=== PATIENT | male | born 1985 | race Caucasian/White ===

== ENCOUNTER → 2021-05-11 13:57 | Outpatient (CLI) | payer OTHER, SELFPAY ==
--- NOTE | 2021-05-11 14:08 | XR_ITS ---
PROCEDURE: XR SHOULDER RT MIN 2V CLINICAL INDICATION: RT shoulder COMPARISON: No exams were available for comparison FINDINGS: IMPRESSION: No acute findings. Dictated by: Dr. Loco Lock MD 05/11/2021 14:29 Dr. Loco Lock MD in [facility] 05/11/2021 14:29
== END ==
PROVIDERS: PCP Internal Medicine; Visit Provider Orthopaedic Surgery
DX: M25.511 Pain in right shoulder (principal)
CPT/HCPCS: 73030

== ENCOUNTER → 2021-05-15 10:53 | Outpatient (CLI) | payer OTHER, SELFPAY ==
--- NOTE | 2021-05-15 10:56 | MR_ITS ---
PROCEDURE INFORMATION: Exam: MR Right Upper Extremity Joint Without Contrast; Shoulder Exam date and time: 05/15/2021 10:56 AM Age: 35 years old Clinical indication: Pain; Shoulder; Right; Prior surgery; Surgery date: 6+ months; Additional info: RT shoulder injury. Prior HX shoulder surgery x10yrs. Repair of labrum and rotator cuff. No injury or trauma. Dislocated shoulder x2wks ago. Prior x-ray 05-11-21 TECHNIQUE: Imaging protocol: MR of the Right upper extremity without contrast. Exam focused on the shoulder. COMPARISON: CR XR SHOULDER RT MIN 2V 05/11/2021 2:09 PM FINDINGS: Limitations: Motion artifact. Bones and cartilage: An impaction fracture involving the posterolateral humeral head is consistent with a Hill-Sachs lesion from prior anterior shoulder dislocation. A mildly flattened appearance of the anterior inferior glenoid may represent an area of prior low-grade impaction fracture (series 7/images 3-4). The undersurface of the acromion has a normal curvature, consistent with a type II acromion. No aggressive bone lesions are present. Joint spaces: A mild effusion involves the glenohumeral joint. No significant degenerative change involves the acromioclavicular joint. Glenoid labrum: There are tracks in the labrum consistent with prior labral repair. A heterogeneous appearance to the labrum has a nonspecific appearance in the setting of prior surgery. However, significant heterogeneity of the anterior inferior glenoid labrum, which may be displaced, is highly suggestive of a retear in the setting of a prior shoulder dislocation. Bursae: A trace amount of fluid is present in the subacromial-subdeltoid bursa. Supraspinatus tendon: Low-grade partial-thickness tearing involves the bursal surface of the supraspinatus tendon. Mild tendinosis involves the adjacent supraspinatus tendon. Infraspinatus tendon: No tear or significant tendinosis involves the infraspinatus tendon. Subscapularis tendon: No tear or significant tendinosis involves the subscapularis tendon. Teres minor tendon: No tear or significant tendinosis involves the teres minor tendon. Tendon of biceps brachii: The long head of the biceps tendon is normally situated within the bicipital groove. Glenohumeral ligaments: Unremarkable. Muscles: The rotator cuff musculature demonstrates no significant edema or atrophy. Soft tissues: There are normal postoperative punctate foci of micrometallic artifact in the soft tissues. IMPRESSION: 1. Hill-Sachs impaction fracture involving the posterolateral humeral head. 2. Probable retear of the anterior inferior glenoid labrum with additional labral heterogeneity being indeterminate in the setting of prior repair. 3. Low-grade partial-thickness tearing of the supraspinatus tendon bursal surface, superimposed on mild tendinosis. 4. Possible low-grade impaction fracture of the anterior inferior glenoid.
== END ==
PROVIDERS: PCP Internal Medicine; Visit Provider Orthopaedic Surgery
DX: M24.411 Recurrent dislocation, right shoulder (principal)
CPT/HCPCS: 73221

== ENCOUNTER 2021-12-28 17:50 | Emergency (ER) | payer BC, SELFPAY ==
--- NOTE | 2021-12-28 17:50 | PC.NURSE ---
FAMILY BROUGHT PT TO ED BY CAR UNRESPONSIVE, APNEIC, PULSLESS, STATES HE HAD SEIZURE TYPE ACTIVITY AND STOPPED BREATHING . CPR STARTED PT TRANSFERRED FROM WHEELCHAIR TO STRETCHER. PT BAGGED PER BVM.
--- NOTE | 2021-12-28 17:53 | PC.NURSE ---
EPI 1MG GIVEN
--- NOTE | 2021-12-28 17:54 | PC.NURSE ---
PULSE CHECK, VFIB 200j CPR RESUMED
--- NOTE | 2021-12-28 17:56 | PC.NURSE ---
PULSE CHECK VFIB SHOCK 200J, CPR RESUMED
--- NOTE | 2021-12-28 17:56 | PC.NURSE ---
MAG 2GMS IVP GIVEN
--- NOTE | 2021-12-28 17:57 | PC.NURSE ---
CALCIUM 1GM IVP
--- NOTE | 2021-12-28 17:58 | PC.NURSE ---
EPI 1MG IVP
--- NOTE | 2021-12-28 17:58 | PC.NURSE ---
PULSE CHECK, PEA, NO PULSE, CPR RESUMED
--- NOTE | 2021-12-28 17:58 | PC.NURSE ---
I AMP BICARB IVP
--- NOTE | 2021-12-28 18:00 | PC.NURSE ---
PULSE CHECK, PEA, NO PULSE, CPR RESUMED
--- NOTE | 2021-12-28 18:02 | PC.NURSE ---
EPI 1MG IVP
--- NOTE | 2021-12-28 18:04 | PC.NURSE ---
PULSE CHECK, PEA, NO PULSE CPR RESUMED
[2021-12-28 18:06] VITALS: BMI 22.9
--- NOTE | 2021-12-28 18:06 | PC.NURSE ---
EPI 1MG IVP
--- NOTE | 2021-12-28 18:06 | PC.NURSE ---
EPI 1MG IVP
--- NOTE | 2021-12-28 18:08 | PC.NURSE ---
PULSE CHECK, PEA , NO PULSE CPR RESUMED
--- NOTE | 2021-12-28 18:09 | PC.NURSE ---
PT INTUBATED 7.5 ETT AT 24 TEETH, +COLOR CHANGE, +BREATH CHANGE
--- NOTE | 2021-12-28 18:09 | INFXCTL.NOTE ---
END TITLE 11
--- NOTE | 2021-12-28 18:10 | PC.NURSE ---
PULSE CHECK, ASYSTOLE, NO PULSE CPR RESUMED
--- NOTE | 2021-12-28 18:10 | PC.NURSE ---
EPI 1MG IVP
--- NOTE | 2021-12-28 18:12 | PC.NURSE ---
pulse check, asystole
--- NOTE | 2021-12-28 18:14 | PC.NURSE ---
pulse check, no pulse, asystole
--- NOTE | 2021-12-28 18:16 | PC.NURSE ---
pulse check, PEA, no pulse
--- NOTE | 2021-12-28 18:18 | PC.NURSE ---
pulse check, PEA, no pulse
--- NOTE | 2021-12-28 18:20 | PC.NURSE ---
second line started 20 right ac
--- NOTE | 2021-12-28 18:20 | PC.NURSE ---
no pulse, US no cardiac activity
[2021-12-28 18:22] LABS: Anion Gap 13.1 mEq/L (5-15); Blood Urea Nitrogen 11 mg/dl (9-20); Carbon Dioxide 24 mmol/L (22.0-30.0); Chloride 106 mmol/L (98-107); Creatinine Clearance Estimated 107 mL/min (50-200); Estimated Glomerular Filt Rate 86 ml/min (>60); GFR (African American) 103 ML/MIN (>60); Glucose 116 mg/dl (74-100); Potassium 5.1 mmoL/L (3.5-5.1); Sodium 138 mmol/L (136-145)
--- NOTE | 2021-12-28 18:22 | PC.NURSE ---
pulse check, asystole, epi given
--- NOTE | 2021-12-28 18:24 | PC.NURSE ---
no pulse, asystol, pulse check
--- NOTE | 2021-12-28 18:26 | PC.NURSE ---
pulse check, no pulse, asystole, epi given, fs 204
--- NOTE | 2021-12-28 18:27 | PC.NURSE ---
TPA 15mg bolus
--- NOTE | 2021-12-28 18:28 | PC.NURSE ---
pulse check, no pulse, asystole
--- NOTE | 2021-12-28 18:29 | PC.NURSE ---
2 mg of mag, calcium given
[2021-12-28 18:30] LABS: Calcium 13.3 mg/dl (8.4-10.2)
--- NOTE | 2021-12-28 18:30 | PC.NURSE ---
pulse check, asystole and epi given
--- NOTE | 2021-12-28 18:32 | PC.NURSE ---
PULSE CHECK, NO PULSE, ASYSTOLE CPR RESUMED
[2021-12-28 18:34] LABS: Troponin I 0.02 ng/ml (0.00-0.034)
--- NOTE | 2021-12-28 18:34 | PC.NURSE ---
EPI 1 MG IVP, PULSE CHECK, NO PULSE, ASYSTOLE CPR RESUMED
--- NOTE | 2021-12-28 18:36 | PC.NURSE ---
PULSE CHECK ASYSTOLE, NO PULSE CPR RESUMED
--- NOTE | 2021-12-28 18:38 | PC.NURSE ---
PULSE CHECK NO PULSE, ASYSTOLE CPR RESUMED
--- NOTE | 2021-12-28 18:40 | PC.NURSE ---
PULSE CHECK, NO PULSE, NO CARDIAC ACTIVITY PER US, ASYSTOLE CPR RESUMED
[2021-12-28 18:42] LABS: Magnesium 3.1 mg/dl (1.6-2.3)
--- NOTE | 2021-12-28 18:42 | PC.NURSE ---
TPA GIVEN 100MG IVP PER NIGHT WATCH
--- NOTE | 2021-12-28 18:44 | PC.NURSE ---
PULSE CHECK NO PULSE, ASYSTOLE, CPR RESUMED, PT NARCAN IVP2MG
--- NOTE | 2021-12-28 18:46 | PC.NURSE ---
TIME OF [address] WHITNEY
--- NOTE | 2021-12-28 18:46 | PC.NURSE ---
PULSE CHECK, NO PULSE
[2021-12-28 18:51] LABS: Basophils # 0.2 K/mm3 (0-0.2); Basophils % 1.5 % (0.1-2.0); Eosinophils # 0.2 K/mm3 (0.0-0.4); Eosinophils % 1.9 % (0.1-12.0); Hemoglobin 15.3 g/dL (14.1-18.0); Lymphocytes # 5.2 K/mm3 (0.7-4.5); Lymphocytes % 53.8 % (10-50); Mean Corpuscular HGB Conc 33.3 g/dL (31.8-35.4); Mean Corpuscular Hemoglobin 29.1 pg (27.0-31.2); Mean Corpuscular Volume 87.3 fl (80-94); Mean Platelet Volume 10.9 fl (7.4-10.4); Monocytes # 0.6 K/mm3 (0.1-1.0); Monocytes % 6.2 % (1.7-9.3); Neutrophils # 3.5 K/mm3 (1.8-7.8); Neutrophils % 36.6 % (37.0-80.0); Red Blood Count 5.26 M/mm3 (4.60-6.20); Red Cell Distribution Width 13.8 % (11.5-17.5); White Blood Count 9.7 K/mm3 (4.8-10.8)
[2021-12-28 19:04] LABS: Platelet Count 128 K/mm3 (142-424)
[2021-12-28 19:09] LABS: MANUAL DIFFERENTIAL MANUAL DIFFERENTIAL (MANUAL DIFF)
--- NOTE | 2021-12-28 19:17 | PC.NURSE ---
CALLED [facility] DAV[facility] WILL RETURN CALL
[2021-12-28 19:23] LABS: INR 1.11 (0.9-1.1); Prothrombin Time 12.4 seconds (10.1-12.5)
--- NOTE | 2021-12-28 19:23 | PC.NURSE ---
1750- Code blue initiated, CPR started 1753- peripheral line started, Epi given 1754- pulse check, 1 shock delivered at 200J, cpr resumed 1756- pulse check, 1 shock delivered at 200J, CPR resumed 1756- 2GM mag given 1757- 1GM Calcium given 1758- pulse check, PEA, CPR resumed, epi given, bicarb given 1758- 1amp bicarb given 1800- pulse check, PEA, CPR resumed 1802- pulse check, PEA, CPR resumed, epi given 1804- pulse check, PEA, CPR resumed 1806- pulse check, PEA, CPR resumed, epi given 1808- pulse check, Asystole, CPR resumed 1809- Intubated per Dr Torres with 7.5 ETT 24@ teeth, BL breath sounds noted, good color change on CO2 detector 1810- pulse check, asystole, CPR resumed, epi given 1812- pulse check, asystole, resume CPR 1814- pulse check, asystole, resume CPR, epi given 1816- pulse check, PEA, resume CPR 1818- pulse check, PEA, resume CPR, epi given 1820- pulse check, US per Dr Torres, no cardiac activity noted, resume CPR 1820- Second peripheral line started 1822- pulse check, aystole, CPR resumed, epi given 1824- pulse check, asystole, CPR resumed 1826- pulse check, asystole, CPR resumed, epi given 1826- FSBG 204 1827- TPA 15mg bolus given per MD order 1828- pulse check, asystole, CPR resumed 1829- 2GM mag given 1829- 1GM calcium given 1830- pulse check, asystole, CPR resumed, epi given 1831- TPA infusing, verified by Nubia Jimenez RN and Loi Temple RN 183- pulse check, asystole, CPR resumed 1834- pulse check, asystole, CPR resumed, epi given 1836- pulse check, asystole, CPR resumed 1838- pulse check, asystole, CPR resumed, epi given 1840- pulse check, no pulse noted, US per Dr Torres no cardiac activity noted, CPR resumed 1842- pulse check, asystole, CPR resumed, epi given, TPA 45mg bolus given 1844- pulse check, asystole, CPR resumed 1843- narcan given 1845- pulse check, asystole 1845- Time of called per Dr Torres
--- NOTE | 2021-12-28 19:24 | PC.NURSE ---
[facility] RETURNED CALL
--- NOTE | 2021-12-28 19:30 | PC.NURSE ---
FAMILY DID NOT WANT TO GO TO BEDSIDE
--- NOTE | 2021-12-28 19:34 | PC.NURSE ---
CALCIUM 1GRAM IVP
--- NOTE | 2021-12-28 19:45 | PC.NURSE ---
EPI 1 MG IVP
[2021-12-28 20:35] LABS: Lymphocytes % 63 % (10-50); Monocytes % 4 % (2-9); Neutrophils % 30 % (42-76); Platelet Estimate Slight Decrease; Total Cells Counted 100
--- NOTE | 2021-12-28 21:25 | HMH.EDGENADL ---
ED Disposition Clinical Impression: Cardiac arrest Disposition: Condition on Discharge: Critical Referrals: Provider,Referral, [Primary Care Provider] - - Critical Care Critical Care Time: Yes Attestation: On 12/28/21, the high probability of a clinically significant, sudden or life threatening deterioration of the following system(s) required my full and direct attention, intervention and personal management. The time I documented below is in addition to time spent performing reported procedures but includes the following listed in this critical care notation. Vital system(s) involved:: Circulatory Failure My critical care processes included: Assessment & monitoring of V/S, Initial and Re-exams, Coordinating Care, Medication Orders and management, Documentation Probable Cause of : Cardiac arrest Medical Decision Making - Doe Inquiry Pt receiving controlled substance: No Vital Signs: 12/28/21 20:09 Oxygen Delivery Method Ambu-Bag - Lab Data Lab Results 12/28/21 18:00: Sodium 138, Potassium 5.1, Chloride 106, Carbon Dioxide 24, Anion Gap 13.1, BUN 11, Creatinine 1.00, Estimated Creat Clear 107, Estimated GFR 86, Est GFR ( Amer) 103, Glucose 116 H, Calcium 13.3 H*, Troponin I 0.02 12/28/21 18:00: Magnesium 3.1 H 12/28/21 18:50: PT 12.4, INR 1.11 H, APTT 18.0 L 12/28/21 : WBC 9.7, RBC 5.26, Hgb 15.3, Hct 46.0, MCV 87.3, MCH 29.1, MCHC 33.3, RDW 13.8, Plt Count 128 L, MPV 10.9 H, Neut % (Auto) 36.6 L, Lymph % (Auto) 53.8 H, Darke % (Auto) 6.2, Eos % (Auto) 1.9, Baso % (Auto) 1.5, Neut # (Auto) 3.5, Lymph # (Auto) 5.2 H, Darke # (Auto) 0.6, Eos # (Auto) 0.2, Baso # (Auto) 0.2, Total Counted 100, Neutrophils % (Manual) 30 L, Lymphocytes % (Manual) 63 H, Monocytes % (Manual) 4, Basophils % (Manual) 3.0 H, Platelet Estimate Slight decrease Result diagrams: 12/28/21 Unknown 12/28/21 18:00 Orders (Tests/Meds): ED MEDICATIONS Generic Name Dose Route Start Last Admin Trade Name Siva PRN Reason Stop Dose Admin Epinephrine HCl 1 mg 12/28/21 18:14 12/28/21 18:30 Epinephrine 0.1 Mg/Ml 10ml Syringe (Crash Cart) IV 01/27/22 18:13 1 mg NEEDED PRN Administration Code Blue Med Administration Discontinued Medications Generic Name Dose Route Start Last Admin Trade Name Siva PRN Reason Stop Dose Admin Alteplase, Recombinant 100 mg 12/28/21 19:50 12/28/21 18:42 Alteplase Recombinant 100mg Vial IV 12/28/21 19:51 100 mg ONCE ONE Administration Calcium Chloride 1 gm 12/28/21 19:49 12/28/21 17:58 Calcium Chloride 1gm/10ml Syringe (Crash Cart) IVP 12/28/21 19:50 1 gm ONCE ONE Administration Calcium Chloride 2 gm/ Sodium 270 mls @ 67.5 mls/hr 12/28/21 18:29 12/28/21 19:52 Chloride IV 12/28/21 18:30 67.5 mls/hr ONCE ONE Administration Calcium Chloride 1 gm/ Sodium 110 mls @ 55 mls/hr 12/28/21 17:57 12/28/21 17:57 Chloride IV 12/28/21 17:58 55 mls/hr ONCE ONE Administration Magnesium Sulfate 2 gm 12/28/21 19:49 12/28/21 17:56 Magnesium Sulfate 1gm/2ml Vial IV 12/28/21 19:50 2 gm ONCE ONE Administration Magnesium Sulfate 2 gm 12/28/21 18:29 12/28/21 17:56 Magnesium Sulfate 1gm/2ml Vial IM 12/28/21 18:30 2 gm ONCE ONE Administration Naloxone HCl 2 mg 12/28/21 19:55 12/28/21 18:44 Naloxone 2mg/2ml Syringe IV 12/28/21 19:56 2 mg ONCE ONE Administration Sodium Bicarbonate 50 meq 12/28/21 19:51 12/28/21 17:58 Sodium Bicarb 8.4% 50ml Syringe (Crash Cart) IV 12/28/21 19:52 50 meq ONCE ONE Administration ORDERS Category Date Time Status Troponin I Q3H Lab 12/29/21 00:15 Ordered Medical Decision Narrative: 36 yo male w/ reported hx of brugada syndrome presented to ED after seizure like episode resulting in responsiveness, and brought in by private vehicle. Upon arrival in ED he was noted to have no pulse. Unknown if bystander CPR was done. ACLS was immediately started and carried on in the
--- NOTE | 2021-12-28 21:35 | PC.NURSE ---
[facility] called back and released from there stand point since corner case.
[2021-12-28 22:35] VITALS: BP 0/0; PULSE 0; RESP 0; TEMP -17.7; TEMP 0; O2SAT 0
== END 2021-12-28 22:36 | disposition expired ==
PROVIDERS: Emergency Provider Student in an Organized Health Care Education/Training Program
DX: I46.9 Cardiac arrest, cause unspecified (principal); I49.8 Other specified cardiac arrhythmias
CPT/HCPCS: 96365; 31500; 80048; 83735; 84484; 85007; 85025; 85610; 85730; 92950; 96375; 96376; 99285; J2310; J2997